=== PATIENT | female | born 1995 | race Hispanic/Latino ===

== ENCOUNTER 2018-01-25 05:44 | Inpatient (IN) | payer OTHER ==
[2018-01-25] MEDS ORDERED: LR 1,000 ML IV (06:50)
[2018-01-25] MEDS ORDERED: LACTATED RINGER'S 1000 ML IV ×2 (07:00→18:00)
[2018-01-25 07:15] LABS: HEMATOCRIT 36.8 % (36.0-47.0); HEMOGLOBIN 11.7 g/dl (12.0-15.5); MEAN CORPUSCULAR HEMOGLOBIN 25.2 pg (27.0-33.0); MEAN CORPUSCULAR HGB CONC 31.8 g/dl (32.0-36.5); MEAN CORPUSCULAR VOLUME 79.3 fl (80.0-96.0); PLATELET COUNT, AUTOMATED 347 10^3/uL (150-450); RED BLOOD COUNT 4.64 10^6/uL (4.00-5.40); RED CELL DISTRIBUTION WIDTH 16.4 % (11.5-14.5); WHITE BLOOD COUNT 11.2 10^3/uL (4.0-10.0)
[2018-01-25 10:48] LABS: HIV 1&2 SCREEN CENTAUR NEGATIVE (NEGATIVE)
[2018-01-25] MEDS: OXYTOCIN DRIP 30 UNITS in APPROPRIATE DILUENT 1 EA IV (11:19)
[2018-01-25] MEDS ORDERED: FENTANYL 2MCG/ML ROPIVACAINE 0.2% IN 0.9% NACL 200ML IVBAG As Ordered (16:23)
[2018-01-25] MEDS ORDERED: OXYTOCIN DRIP 30 UNITS in APPROPRIATE DILUENT 1 EA IV (17:28)
[2018-01-25] MEDS ORDERED: DIBUCAINE 1% OINTMENT 30GM TOP (17:30)
[2018-01-25] MEDS ORDERED: MEASLES,MUMPS,RUBELLA VACCINE INJ (MMR-II) (90707) SC (17:30)
[2018-01-25] MEDS ORDERED: RHOGAM 300 MCG (1500 IU) INJ (J2790) IM (17:30)
[2018-01-25] MEDS ORDERED: METOCLOPRAMIDE INJ 10MG/2ML VIAL (J2765) IV (17:30)
[2018-01-25] MEDS: FENTANYL/ROPIVACAINE/NACL BAG 200 ML EPIDURAL (18:00)
[2018-01-25] MEDS ORDERED: ONDANSETRON 4MG/2ML VIAL (J2405) IV (18:00)
[2018-01-25] MEDS ORDERED: ePHEDrine SULFATE 25 MG/5 ML(5MG/ML) SYRINGE IV (18:00)
[2018-01-25] MEDS ORDERED: EPIDURAL COMMENT XX (18:00)
[2018-01-25] MEDS ORDERED: NALOXONE INJ 0.4 MG/1 ML VIAL (J2310) IV (18:00)
[2018-01-25] MEDS ORDERED: diphenhydrAMINE INJ 50MG/ML VIAL (J1200) IV (18:00)
[2018-01-25] MEDS ORDERED: EPIDURAL/PCA KEYS XX (18:00)
[2018-01-25] MEDS ORDERED: REFRIGERATOR IV KEYS XX (18:00)
[2018-01-25] MEDS: IBUPROFEN 800 MG TAB PO (19:09)
[2018-01-25] MEDS: DOCUSATE SODIUM 100 MG CAP PO (22:37)
[2018-01-25] MEDS: ACETAMINOPHEN TAB 650MG DOSE (2X325MG) PO (22:37)
[2018-01-26] MEDS: ACETAMINOPHEN TAB 650MG DOSE (2X325MG) PO ×2 (05:44→19:49)
[2018-01-26] MEDS: DOCUSATE SODIUM 100 MG CAP PO ×2 (07:50→20:37)
[2018-01-26] MEDS: PRENATAL VITAMINS CHEWABLE TABLET PO (07:50)
[2018-01-26] MEDS: IBUPROFEN 800 MG TAB PO (14:12)
[2018-01-27] MEDS: PRENATAL VITAMINS CHEWABLE TABLET PO (08:39)
[2018-01-27] MEDS: DOCUSATE SODIUM 100 MG CAP PO (08:39)
[2018-01-27] MEDS: IBUPROFEN 800 MG TAB PO (08:40)
== END 2018-01-27 12:00 | disposition home or self-care (01) | DRG 807 ==
LOC: M LDO 05:44 → M LDI 06:32 → M OBS 19:43
PROVIDERS: Obstetrics & Gynecology
PROC: 10E0XZZ Delivery of Products of Conception, External Approach (ICD-10-PCS; principal; 2018-01-25)
DX: O80 Encounter for full-term uncomplicated delivery (principal); Z37.0 Single live birth; Z3A.37 37 weeks gestation of pregnancy